=== PATIENT | male | born 1960 | race Caucasian/White ===

== ENCOUNTER → 2016-09-07 | Outpatient (CLI) | payer OTHER ==
[2014-12-03 09:01] VITALS: BP 96/61
[~2016-09-07] MED LIST: ACLI400A2 IH; ALBU2.5V14 NEB; BUDE10.2 IH; CEFT1FRO2 IV; CEPH-264 PO; DOCU-27 PO; ERYT1OIN6 PO; FLUT1DIS3 IH; HYDR1TAB20 PO; HYDR2TAB13 PO; IOHEXOL 240 MG/ML 50ML VIAL. PO ONE; IOHEXOL 300 MG/ML 75 ML VIAL IV ONE; LEVO750T31 PO; METO25TA4 PO; NICO1PAT25 TD; OMEP40CA2 PO; ONDA4TAB7 PO; OXYC-244 PO; OXYC-323 PO; Oxycodone Hcl/Acetaminophen PO; PIPE3.377 IV; POTA10TA5 PO; SERT100T8 PO; TIOT18CA IH
--- NOTE | 2016-09-07 10:13 | RAD ---
EXAM: CT OF THE CHEST, ABDOMEN AND PELVIS WITH INTRAVENOUS CONTRAST. HISTORY: Lung cancer restaging. Right superior sulcus syndrome. TECHNIQUE: Computed tomography of the chest, abdomen and pelvis was performed after the intravenous administration of 75 mL Omnipaque 300. COMPARISON: 03/09/2016. FINDINGS: Bone windows reveal no suspicious lesions. There are mild chronic wedge compression deformities from L1 through L3 without clear underlying lesions. There are no pathologically enlarged mediastinal or axillary lymph nodes. A 12 mm right axillary lymph node is stable. There is no pleural or pericardial effusion. The heart is not enlarged. There are dense atherosclerotic calcifications of the coronary arteries. There is a suture line along left hilum with postoperative left hemithoracic volume loss. Centrilobular emphysema is moderate to severe on the right greater than left. Overlying the right apex measure 6.6 cm. No superior sulcus mass is identified. A 6 x 4 mm nodule in the right lower lobe in the azygoesophageal recess has been present since at least 2013 and is likely benign. An 11 mm groundglass opacity in the left upper lobe is stable. A 4 mm nodule posteriorly on the left on image 19 has decreased in size over time. There is mild basilar atelectasis. A hypoattenuating hepatic lesion adjacent to the inferior vena cava measures 2.9 cm and has been present since at least 2011. Likely benign. Another peripherally in the left lobe measures 12 mm and has also been stable chronically. The pancreas, adrenal glands and spleen are unremarkable. The gallbladder is surgically absent. There is a 3 mm calculus in the left renal lower pole. Sigmoid diverticulosis is mild. There is no obstruction. There is postsurgical scarring along the upper anterior abdominal wall, with changes suggesting measure up of a midline hernia. There is diastasis of the rectus muscles inferiorly, into which protrudes a nonobstructed small bowel loop. There is mild infrarenal abdominal aortic ectasia without aneurysm. Maximum diameter is 2.1 cm. The prostate is mildly enlarged. IMPRESSION: 1. No evidence of recurrent or metastatic disease. 2. Pulmonary nodules measuring up to 11 mm in the left upper lobe have been stable chronically and are likely benign. 3. Moderate to severe centrilobular emphysema with bullous changes in the right apex. 4. Hepatic lesions have been stable since 2011 and are also likely benign. 5. 3 mm left renal calculus. 6. Diastasis of the rectus muscles inferiorly without a discrete hernia. *One or more of the following individualized dose reduction techniques were utilized for this examination: 1. Automated exposure control. 2. Adjustment of the mA and/or kV according to patient size. 3. Use of iterative reconstruction technique.
== END | disposition home or self-care (01) ==
LOC: CT 08:00
PROVIDERS: ATTEND Internal Medicine Hematology & Oncology
DX: C34.11 Malignant neoplasm of upper lobe, right bronchus or lung (principal); N20.0 Calculus of kidney; J43.2 Centrilobular emphysema; R91.1 Solitary pulmonary nodule; K76.9 Liver disease, unspecified
CPT/HCPCS: 71260; 74177; Q9966; Q9967

== ENCOUNTER → 2017-09-19 | Outpatient (CLI) | payer OTHER ==
[~2017-09-19] MED LIST changes: -ACLI400A2 IH; -ALBU2.5V14 NEB; -BUDE10.2 IH; -CEFT1FRO2 IV; -CEPH-264 PO; +CONTRAST GIVEN MC; -DOCU-27 PO; -ERYT1OIN6 PO; -FLUT1DIS3 IH; -HYDR1TAB20 PO; -HYDR2TAB13 PO; -IOHEXOL 240 MG/ML 50ML VIAL. PO ONE; -IOHEXOL 300 MG/ML 75 ML VIAL IV ONE; -LEVO750T31 PO; -METO25TA4 PO; -NICO1PAT25 TD; -OMEP40CA2 PO; -ONDA4TAB7 PO; -OXYC-244 PO; -OXYC-323 PO; -Oxycodone Hcl/Acetaminophen PO; -PIPE3.377 IV; -POTA10TA5 PO; -SERT100T8 PO; -TIOT18CA IH
[2017-09-19] MEDS: IOHEXOL 300 MG/ML 100ML VIAL. IV (08:53)
== END | disposition home or self-care (01) ==
LOC: CT 08:52
DX: C34.10 Malignant neoplasm of upper lobe, unspecified bronchus or lung (principal); J43.9 Emphysema, unspecified; I25.10 Atherosclerotic heart disease of native coronary artery without angina pectoris; K76.9 Liver disease, unspecified; I77.810 Thoracic aortic ectasia; R91.1 Solitary pulmonary nodule
CPT/HCPCS: 71260; Q9967

== ENCOUNTER → 2018-09-25 | Outpatient (CLI) | payer OTHER ==
[2014-12-03 09:01] VITALS: BP 96/61
[~2018-09-25] MED LIST changes: +ACLI400A2 IH; +ALBU2.5V14 NEB; +BUDE10.2 IH; +CEFT1FRO2 IV; +CEPH-264 PO; -CONTRAST GIVEN MC; +DOCU-109 PO; +ERYT1OIN6 PO; +FLUT1DIS3 IH; +HYDR1TAB20 PO; +HYDR2TAB31 PO; +IOHEXOL 240 MG/ML 50ML VIAL. PO ONE; +IOHEXOL 300 MG/ML 100ML VIAL. IV ONE; +LEVO750T31 PO; +METO25TA4 PO; +NICO1PAT25 TD; +OMEP40CA2 PO; +ONDA4TAB7 PO; +OXYC1TAB15 PO; +OXYC1TAB19 PO; +Oxycodone Hcl/Acetaminophen PO; +PIPE3.377 IV; +POTA10TA12 PO; +SERT100T8 PO; +TIOT18CA IH
--- NOTE | 2018-09-25 14:03 | RAD ---
Examination: CT chest abdomen pelvis with IV contrast HISTORY: History of an cancer follow-up COMPARISON: Chest CT from 09/19/[address] from 09/07/2016 Exposure: One or more of the following individualized dose reduction techniques were utilized for this examination: 1. Automated exposure control 2. Adjustment of the mA and/or kV according to patient size 3. Use of iterative reconstruction technique TECHNIQUE: Axial CT images of the chest abdomen pelvis were performed with IV contrast. Coronal and sagittal reformats are performed FINDINGS: The visualized thyroid gland grossly appears unremarkable. The central airways are patent. Coronary artery calcifications identified in the heart size grossly appears unremarkable. No evidence for significant mediastinal lymphadenopathy is identified. Severe bilateral lung emphysematous changes. There is a 1 cm nodule identified in the left upper lobe of the lung similar to prior exam. Postsurgical changes identified in the left hemithorax. 4 mm noncalcified right lower lobe lung nodule, 4 mm noncalcified right lower lobe lung nodule and a 6 mm left upper lobe lung nodules are unchanged. No evidence of pleural effusion or pneumothorax. There is mild decreased attenuation noted in the liver likely hepatic steatosis. There are hypodensities identified in the right lobe of the liver with the largest measuring 2.8 cm, best visualized on series 4 image #16, similar to prior exam from 2017. The visualized spleen, adrenals grossly appears unremarkable. The stomach is mildly distended. The visualized pancreas grossly appears unremarkable. The small bowel is nondilated. Feces and gas noted in the colon. The urinary bladder is mildly distended. Moderate enlarged prostate gland. The bilateral kidneys enhance symmetrically. No evidence of significant retroperitoneal lymphadenopathy There is small sclerotic density identified in the posterior left 11th rib similar to prior exam. Mild degenerative changes identified in the visualized lumbar spine. IMPRESSION: 1. Scattered nodules identified in the bilateral lungs similar to prior exam with the largest measuring 1 cm in the left upper lobe. 2. Hypodensities identified in the liver grossly similar to prior exam is stable since 2017. 3. Hepatic steatosis. 4. Coronary artery calcifications. Electronically signed by: Wilner Levy MD (09/25/2018 2:00 PM) [id number]
== END | disposition home or self-care (01) ==
LOC: CT 08:31
PROVIDERS: ATTEND Internal Medicine Hematology & Oncology
DX: C34.10 Malignant neoplasm of upper lobe, unspecified bronchus or lung (principal); K76.0 Fatty (change of) liver, not elsewhere classified; N40.0 Benign prostatic hyperplasia without lower urinary tract symptoms; J43.9 Emphysema, unspecified; R91.8 Other nonspecific abnormal finding of lung field; I25.10 Atherosclerotic heart disease of native coronary artery without angina pectoris; R14.0 Abdominal distension (gaseous)
CPT/HCPCS: 71260; 74177; Q9966; Q9967

== ENCOUNTER 2020-06-06 08:45 | Emergency (ER) | payer MEDICARE ==
[~2020-06-06] VITALS: Ht 172.7 cm; Wt 109.0 kg
[~2020-06-06 08:45] MED LIST changes: -ACLI400A2 IH; +ACLI400A3 IH; -IOHEXOL 240 MG/ML 50ML VIAL. PO ONE; -IOHEXOL 300 MG/ML 100ML VIAL. IV ONE
[2020-06-06 09:00] VITALS: BP 169/92
--- NOTE | 2020-06-06 09:21 | PHYS DOC ---
Past Medical History Past Medical History: Cancer, Diverticulitis, Other Additional Past Medical Histor: lung cancer Past Surgical History: Other Additional Past Surgical Histo: Multiple Hernia x 6, bowel resection x 2, L upper lung removed Smoking Status: Former Smoker Alcohol Use: Rarely Drug Use: None General Adult EDM: Chief Complaint: CONTISPATION HPI: HPI: Patient is a 59 year old male presents to the emergency room for evaluation of no bowel movement for the past 4 to 5 days. Denies any abdominal pain, nausea, vomiting, or fevers. He reports has had very small amounts of hard pea-sized stool. He intermittently has the urge to have a bowel movement but is not having any discomfort or pain. He has not tried any laxatives or stool softeners at home. Reports that he has had multiple hernia surgeries within the abdomen and perforated colon and was afraid to take any medications at home because of this history. Review of Systems: Review of Systems: Constitutional: Denies fever or chills. [] Eyes: Denies change in visual acuity. [] HENT: Denies nasal congestion or sore throat. [] Respiratory: Denies cough or shortness of breath. [] Cardiovascular: Denies chest pain or edema. [] GI: Denies abdominal pain, nausea, vomiting, bloody stools or diarrhea. +constipation [] : Denies dysuria. [] Musculoskeletal: Denies back pain or joint pain. [] Integument: Denies rash. [] Neurologic: Denies headache, focal weakness or sensory changes. [] Endocrine: Denies polyuria or polydipsia. [] Lymphatic: Denies swollen glands. [] Psychiatric: Denies depression or anxiety. [] Heart Score: Risk Factors: Risk Factors: DM, Current or recent (<one month) smoker, HTN, HLP, family his tory of CAD, obesity. Risk Scores: Score 0 - 3: 2.5% MACE over next 6 weeks - Discharge Home Score 4 - 6: 20.3% MACE over next 6 weeks - Admit for Clinical Observation Score 7 - 10: 72.7% MACE over next 6 weeks - Early Invasive Strategies Allergies: Allergies: Allergies Coded Allergies Type Severity Reaction Last Updated Verified adhesive Allergy Intermediate Rash 10/21/14 Yes Physical Exam: PE: Constitutional: Well developed, well nourished, no acute distress, non-toxic appearance. [] HENT: Normocephalic, atraumatic, bilateral external ears normal, oropharynx moist, no oral exudates, nose normal. [] Eyes: PERRLA, EOMI, conjunctiva normal, no discharge. [] Cardiovascular:Heart rate regular rhythm, no murmur [] Lungs & Thorax: Bilateral breath sounds clear to auscultation [] Abdomen: Bowel sounds normal, soft, no tenderness, no masses, no pulsatile masses. [] Skin: Warm, dry, no erythema, no rash. [] Back: No tenderness, no CVA tenderness. [] Extremities: No tenderness, no cyanosis, no clubbing, ROM intact, no edema. [] Neurologic: Alert and oriented X 3, normal motor function, normal sensory function, no focal deficits noted. [] Psychologic: Affect normal, judgement normal, mood normal. [] Current Patient Data: Vital Signs: Vital Signs Date Time Temp Pulse Resp B/P (MAP) Pulse Ox O2 Delivery O2 Flow Rate FiO2 06/06/20 09:00 98.0 99 22 169/92 (117) 93 Room Air 98.0 EKG: EKG: [] Radiology/Procedures: Radiology/Procedures: [PROCEDURE: ACUTE ABDOMEN SERIES INDICATION: Reason: no bowel movement x5 days / Spl. Instructions: / History: COMPARISON: August 2018 IMPRESSION: 3 views of the chest and abdomen obtained. Disorganized pulmonary markings bilaterally. Would correlate for possible causes such as emphysema. Calcific atherosclerosis. Degenerative changes of the hips. Air scattered throughout the large and small bowel in a nonspecific but not grossly obstructive pattern. Air-filled structure projecting over the lower mediastinum which can be seen with distention of the distal esophagus or hiatal hernia. Electronically signed by: Curt Mckeon MD (06/06/2020 9:52 AM) [id number] ] Course & Med Decision Making: Course & Med Decision Making Pertinent Labs and Imaging studies reviewed. (See chart for details) [Vital signs stable, patient is afebrile and nontoxic in appearance. Acute series abdomen indicates constipation, no obstruction or free air noted. D iscussed findings with patient, would like to have him use an enema as well as mag citrate for symptom relief, he is requesting to do this treatment at home. States he is feeling well enough to go home and use the medications, he was unsure what he could use at home because of previous abdominal surgeries. He does take stool softeners daily, I have recommended he continue to use these. Follow-up with his primary care doctor in the next 1 to 2 days, return to ER for new or worsening symptoms.] Bridgett Disclaimer: Bridgett Disclaimer: This electronic medical record was generated, in whole or in part, using a voice recognition dictation system. Departure Departure Impression: Primary Impression: Constipation Qualified Codes: K59.00 - Constipation, unspecified Disposition: 01 DC HOME SELF CARE/HOMELESS Condition: GOOD Referrals: KYLE BUCK MD (PCP) Patient Instructions: Constipation, Adult, [id number] KYLE LIU GRAIN TRIMMER Jun 06, 2020 09:21
[2020-06-06] MEDS ORDERED: DOCUSATE SODIUM 283 MG/5 ML ENEMA. PR ONE (09:45)
[2020-06-06] MEDS ORDERED: MAGNESIUM CITRATE 296 ML SOLUTION. PO ONE (09:45)
--- NOTE | 2020-06-06 09:55 | RAD ---
INDICATION: Reason: no bowel movement x5 days / Spl. Instructions: / History: COMPARISON: August 2018 IMPRESSION: 3 views of the chest and abdomen obtained. Disorganized pulmonary markings bilaterally. Would correlate for possible causes such as emphysema. Calcific atherosclerosis. Degenerative changes of the hips. Air scattered throughout the large and small bowel in a nonspecific but not grossly obstructive pattern. Air-filled structure projecting over the lower mediastinum which can be seen with distention of the distal esophagus or hiatal hernia. Electronically signed by: Curt Mckeon MD (06/06/2020 9:52 AM) [id number]
== END 2020-06-06 09:58 | disposition home or self-care (01) ==
LOC: ER 08:45
DX: K59.00 Constipation, unspecified (principal); Z87.891 Personal history of nicotine dependence; Z98.890 Other specified postprocedural states; Z87.19 Personal history of other diseases of the digestive system; Z88.8 Allergy status to other drugs, medicaments and biological substances
CPT/HCPCS: 74022; 99283

== ENCOUNTER → 2020-06-17 | Outpatient (CLI) | payer MEDICARE ==
[2020-06-06 09:00] VITALS: BP 169/92
[~2020-06-17] MED LIST changes: +IOHEXOL 240 MG/ML 50ML VIAL. PO ONE; +IOHEXOL 300 MG/ML 100ML VIAL. IV ONE
--- NOTE | 2020-06-17 11:27 | KCIC ---
Exam: CT abdomen/pelvis with intravenous contrast Indication: Constipation for 4 to 5 days, history of lung cancer 7-8 years ago. Comparison: CT abdomen pelvis 09/25/2018 and 03/09/2016 Technique: Helical CT imaging performed of the abdomen and pelvis after the intravenous administratio n of 100 mL Omnipaque 300 intravenous contrast. Sagittal and coronal reformats were obtained. One or more of the following individualized dose reduction techniques were utilized for this examinat ion: 1. Automated exposure control 2. Adjustment of the mA and/or kV according to patient size 3. Use of iterative reconstruction technique. Findings: Lower chest: Lung bases are clear. The heart is normal in size. Liver: A 1.1 cm hypodensity at the dome the liver is unchanged. A more vague hypodense adjacent to th e intrahepatic inferior vena cava is also grossly unchanged measuring 2.7 x 2.0 cm. No new liver lesi on. Portal, superior mesenteric, and splenic veins are patent. Gallbladder/Biliary Tree: The gallbladder is not visualized. Bile ducts are normal. Pancreas: Normal. Spleen: Normal. Adrenal Glands: Normal. Kidneys/Ureters/Bladder: Kidneys are normal in size and enhance symmetrically. There is left nephroli thiasis with a nonobstructing 2 mm calculus. No hydronephrosis. Ureters and bladder are normal. Reproductive Organs: Prostate gland is mildly enlarged. Stomach, small bowel, and colon: Stomach is normal. There is a small lipoma in the second portion of the duodenum. No small bowel obstruction. Mild ascending and sigmoid diverticulosis. No acute diverti culitis. Normal volume of stool. Vasculature: Abdominal aorta and inferior vena cava are normal in caliber. Mild calcified aortic athe rosclerosis. Lymph Nodes: Small ileocolic lymph nodes and small bilateral external iliac chain lymph nodes are unc hanged from 2016. Peritoneum and retroperitoneum: No free fluid or free air. Bones: Unchanged mild degenerative disc disease with chronic endplate irregularities in the lower tho racic and upper lumbar spine. No acute osseous abnormality or suspicious osseous lesion. Miscellaneous: Unchanged soft tissue thickening with some calcifications in the abdominal wall at mid line measuring approximately 5.1 x 2.8 cm, likely postsurgical scarring. Impression: 1. No acute abdominal or pelvic abnormality. 2. Unchanged hypodense liver lesions. 3. Mild ascending and sigmoid diverticulosis without diverticulitis. 4. Mild prostatomegaly. 5. Left nephrolithiasis. Electronically signed by: Josseline Phelps MD (06/17/2020 11:25 AM) [id number]
== END ==
LOC: KCIC CT 08:54
PROVIDERS: ATTEND Family Medicine
DX: K57.30 Diverticulosis of large intestine without perforation or abscess without bleeding (principal); N20.0 Calculus of kidney; K76.89 Other specified diseases of liver; M51.35 Other intervertebral disc degeneration, thoracolumbar region; N40.0 Benign prostatic hyperplasia without lower urinary tract symptoms; D17.79 Benign lipomatous neoplasm of other sites; I70.0 Atherosclerosis of aorta; K59.00 Constipation, unspecified
CPT/HCPCS: 74177; Q9966; Q9967

== ENCOUNTER → 2020-12-30 | Outpatient (CLI) | payer MEDICARE ==
[~2020-12-30] MED LIST changes: -IOHEXOL 240 MG/ML 50ML VIAL. PO ONE; -IOHEXOL 300 MG/ML 100ML VIAL. IV ONE; +SERT-268 PO; -SERT100T8 PO
--- NOTE | 2020-12-30 10:52 | KCIC ---
PQRS Compliance Statement: One or more of the following individualized dose reduction techniques were utilized for this examinat ion: 1. Automated exposure control 2. Adjustment of the mA and/or kV according to patient size 3. Use of iterative reconstruction technique CT THORAX WO 12/30/2020 9:45 AM Indication: Lung cancer; restaging surveillance. Lobectomy 2012, 2013. COMPARISON: None available. TECHNIQUE: Multiple axial CT images of the chest were obtained without intravenous contrast. Coronal and sagittal reformats are provided. FINDINGS: Stable solid noncalcified pulmonary nodule left upper lobe measuring 1.1 cm (series 6, image 26). Sev ere centrilobular pulmonary emphysema. No new or enlarging solid noncalcified pulmonary nodules. John tional subcentimeter pulmonary nodules appear unchanged. For example, 5 mm solid noncalcified pulmona ry nodule along the azygos esophageal groove the right lower lobe is stable (image 36). No pleural ef fusions, pulmonary vascular congestion or pneumothorax. Thyroid gland is normal in appearance. No pat hologically enlarged thoracic lymph nodes. Rounded lymph node in the right axilla is stable measuring 6 mm (image 21). No new or enlarging thoracic lymph nodes. Three-vessel coronary artery vascular opa cifications are present. Thoracic aorta is normal in course and caliber. Heart size within normal odonnell its. No pericardial effusion. Stable hypodensities within the hepatic parenchyma. Upper abdomen is ot herwise unremarkable. No suspicious osseous normality is identified. IMPRESSION: 1. Stable solid noncalcified pulmonary nodules measuring up to 1.1 cm in the left upper lobe, unchang ed when measured in similar dimensions. 2. Severe centrilobular pulmonary emphysema. Electronically signed by: Sarai Celis MD (12/30/2020 10:50 AM) [id number]
== END ==
LOC: KCIC CT 09:43
PROVIDERS: ATTEND Internal Medicine Hematology & Oncology
DX: R91.8 Other nonspecific abnormal finding of lung field (principal); J43.2 Centrilobular emphysema; Q33.1 Accessory lobe of lung; Z90.2 Acquired absence of lung [part of]; Z87.891 Personal history of nicotine dependence; Z85.118 Personal history of other malignant neoplasm of bronchus and lung
CPT/HCPCS: 71250